=== PATIENT | male | born 1960 ===

== ENCOUNTER 2023-10-29 08:02 | Outpatient (CLI) | payer MEDICARE, SELFPAY | END 2023-10-29 08:03 | disposition home or self-care (01) | LOC: NFLDREF 10-30 05:29 | PROVIDERS: PCP Emergency Medicine; Referring Provider Emergency Medicine; Visit Provider Emergency Medicine | DX: E11.9 Type 2 diabetes mellitus without complications (principal); C80.1 Malignant (primary) neoplasm, unspecified; I10 Essential (primary) hypertension; E78.5 Hyperlipidemia, unspecified | CPT/HCPCS: 80053; 80061; 82043; 82570; 82607 ==

== ENCOUNTER 2023-11-26 15:09 | Outpatient (CLI) | payer BC, SELFPAY | END 2023-11-26 15:10 | disposition home or self-care (01) | LOC: LKVREF 15:10 | PROVIDERS: PCP Emergency Medicine; Visit Provider Emergency Medicine | DX: Z12.5 Encounter for screening for malignant neoplasm of prostate (principal) | CPT/HCPCS: G0103 ==

== ENCOUNTER 2024-06-05 08:33 | Outpatient (CLI) | payer MEDICARE, SELFPAY | END 2024-06-05 08:34 | disposition home or self-care (01) | LOC: RAD 08:35 | PROVIDERS: PCP Emergency Medicine; Visit Provider Internal Medicine | DX: I10 Essential (primary) hypertension (principal); I51.7 Cardiomegaly | CPT/HCPCS: 93306 ==

== ENCOUNTER 2024-12-03 14:25 | Outpatient (CLI) | payer MEDICARE, SELFPAY | END 2024-12-03 14:26 | disposition home or self-care (01) | PROVIDERS: PCP Emergency Medicine; Visit Provider Family Medicine | DX: I10 Essential (primary) hypertension (principal); E78.2 Mixed hyperlipidemia; E11.9 Type 2 diabetes mellitus without complications; I25.10 Atherosclerotic heart disease of native coronary artery without angina pectoris; Z12.5 Encounter for screening for malignant neoplasm of prostate | CPT/HCPCS: 80053; 80061; 82043; 82570; G0103 ==

== ENCOUNTER 2025-07-23 08:29 | Outpatient (CLI) | payer MEDICARE, SELFPAY | END 2025-07-23 08:30 | disposition home or self-care (01) | LOC: NFLDREF 07-27 02:59 | PROVIDERS: PCP Family Medicine; Referring Provider Family Medicine; Visit Provider Family Medicine | DX: E78.2 Mixed hyperlipidemia (principal); I10 Essential (primary) hypertension; E11.9 Type 2 diabetes mellitus without complications; I25.10 Atherosclerotic heart disease of native coronary artery without angina pectoris; Z12.5 Encounter for screening for malignant neoplasm of prostate | CPT/HCPCS: 80053; 80061; 82043; 82570; G0103 ==